=== PATIENT | female | born 1970 | race Caucasian/White ===

== ENCOUNTER 2018-04-19 09:38 | Emergency (ER) | payer SELFPAY ==
[~2018-04-19] VITALS: Ht 157.5 cm; Wt 65.0 kg
[~2018-04-19 09:38] MED LIST: ATARAX,VISTARIL25 MG PO; CLEOCIN150 MG PO; CLINDAMYCIN HC300 MG PO; IBUPROFEN800 MG PO; KEFLEX500 MG PO; LORAZEPAM0.5 MG PO; LORAZEPAM1 MG PO; MOTRIN600 MG PO; SOMA350 MG PO; VALIUM5 MG PO; VICODIN,LORT1 TABLET PO; ZITHROMAX Z-PA250 MG PO
[2018-04-19 10:24] LABS: HEMOGLOBIN 12.5 G/DL (11.9-15.5); MCH 32.6 PG (29.0-34.0); MCHC 33.8 G/DL (30.0-36.0); MCV 96.4 FL (83-99); PLATELET COUNT 220 K/uL (156-360); RBC DIS.WIDTH-CV 12.9 % (11.8-14.6); RBC DIS.WIDTH-SD 45.8 % (39-53); RED BLOOD COUNT 3.84 M/uL (3.80-5.20); WHITE BLOOD COUNT 10.5 K/uL (4.1-10.2)
[2018-04-19 10:34] LABS: ALBUMIN 4.1 g/dL (3.2-4.8)
[2018-04-19 10:35] LABS: CHLORIDE 106 mEq/L (99-109); SODIUM 137 mEq/L (136-147)
[2018-04-19 10:37] LABS: GLUCOSE 103 mg/dL (70-99); TOTAL PROTEIN 6.6 g/dL (6.4-8.3)
[2018-04-19 10:39] LABS: TOTAL BILIRUBIN 0.5 mg/dL (0.0-1.0)
[2018-04-19 10:40] LABS: ALKALINE PHOSPHATASE 63 IU/L (3-129)
[2018-04-19 10:41] LABS: CREATININE 0.8 mg/dL (0.6-1.3); GFR ESTIMATE (CALCULATED) > 59 mL/min/
[2018-04-19 10:42] LABS: AST (GOT) 11 IU/L (2-34); UREA NITROGEN (BUN) 10 mg/dL (9-23)
[2018-04-19 10:43] LABS: ALT (GPT) 10 IU/L (3-49)
[2018-04-19] MEDS ORDERED: PREDNISONE20 MG PO (11:20)
[2018-04-19] MEDS ORDERED: TESSALON200 MG PO (11:20)
[2018-04-19] MEDS ORDERED: VENTOLIN HFA18 GM IH (11:20)
[2018-04-19 11:46] VITALS: BP 127/74
== END 2018-04-19 11:47 | disposition home or self-care (01) ==
LOC: EME 09:38
PROVIDERS: Nurse Practitioner Family
DX: J06.9 Acute upper respiratory infection, unspecified (principal); J45.909 Unspecified asthma, uncomplicated; F17.200 Nicotine dependence, unspecified, uncomplicated; F41.9 Anxiety disorder, unspecified; Z88.0 Allergy status to penicillin
CPT/HCPCS: 71046; 80053; 85027; 94640; 99202; 99281; 99284; J7512